=== PATIENT | male | born 1955 | race Caucasian/White ===

== ENCOUNTER 2018-09-21 10:50 | Emergency (ER) | payer BC ==
[2018-09-21 11:18] VITALS: RESP 18; TEMP 98
[2018-09-21] MEDS ORDERED: DEXAMETHASONE SOD PHOSPHATE 10 MG/ML 1 ML VIAL IV STA (12:19)
[2018-09-21] MEDS ORDERED: SODIUM CHLORIDE 0.9% 1,000 ML IV STA (12:19)
[2018-09-21] MEDS ORDERED: KETOROLAC 30 MG/ML 1 ML VIAL IVP STA (12:21)
[2018-09-21] MEDS ORDERED: AMPICILLIN-SULBACTAM 3 GM in SODIUM CHLORIDE 0.9% 100 ML IVPB STA (12:23)
[2018-09-21] MEDS ORDERED: CLINDAMYCIN 600 MG in DEXTROSE 5% IN WATER 50 ML IVPB STA ×2 (12:23)
[2018-09-21 13:30] LABS: ALT 24 U/L (21-72); AST 27 U/L (17-59); Albumin 4.6 g/dL (3.5-5.0); Alkaline Phosphatase 78 U/L (38-126); Anion Gap 10 mmol/L; Blood Urea Nitrogen 14 mg/dL (9-20); Calcium 9.6 mg/dL (8.4-10.2); Carbon Dioxide 22 mmol/L (22-30); Chloride 105 mmol/L (98-107); Glucose 97 mg/dL (74-99); Magnesium 1.9 mg/dL (1.6-2.3); Phosphorus 3.1 mg/dL (2.5-4.5); Potassium 5.2 mmol/L (3.5-5.1); Sodium 137 mmol/L (137-145)
[2018-09-21 13:35] LABS: Partial Thromboplastin Time 24.5 sec (22.0-30.0)
[2018-09-21 13:36] LABS: Basophils % (A) 0 %; Eosinophils # (A) 0.2 k/uL (0-0.7); Eosinophils % (A) 1 %; HCT 51.1 % (39.0-53.0); HGB 17.1 gm/dL (13.0-17.5); Lymphocytes # (A) 0.9 k/uL (1.0-4.8); Lymphocytes % (A) 6 %; MCH 31.1 pg (25.0-35.0); MCHC 33.4 g/dL (31.0-37.0); Mean Platelet Volume 6.7; Monocytes # (A) 0.7 k/uL (0-1.0); Monocytes % (A) 5 %; Neutrophils # (A) 13.9 k/uL (1.3-7.7); Neutrophils % (A) 88 %; Platelet Count 230 k/uL (150-450); RDW 14.5 % (11.5-15.5); WBC 15.8 k/uL (3.8-10.6)
--- NOTE | 2018-09-21 14:00 | CT ---
EXAMINATION TYPE: CT soft tissue neck wo con DATE OF EXAM: 09/21/2018 COMPARISON: None HISTORY: left side abscess / facial swelling CT DLP: 221.[address] of the neck was performed from the skull base through the lung apices . The lack of con trast limits evaluation. There is left facial swelling adjacent to the left hemimandible. Lack of contrast limits evaluation o mookie there appears to be an abscess or phlegmon on image 44 of 92 measuring approximately 2.7 x 1.7 cm . AIRWAY: The supraglottic, glottic, and subglottic portions of the airway appear patent and free of mass. Ulcerations noted of the tonsillar pillars. SALIVARY GLANDS: The submandibular and parotid glands are free of mass or inflammatory process. THYROID GLAND: No nodules or masses seen. LYMPH NODES: No adenopathy seen greater than 1cm. LUNG APICES: No nodule or mass is seen. OTHER: Vascular structures are patent. No significant degenerative change of the cervical spine. N o abscess seen. IMPRESSION: There is left facial swelling adjacent to the left hemimandible. Lack of contrast limits evaluation o mookie there appears to be an abscess or phlegmon on image 44 of 92 measuring approximately 2.7 x 1.7 cm .
--- NOTE | 2018-09-21 14:39 | ED ---
ENT HPI - General Chief complaint: Dental/Oral Stated complaint: Dental pain/facial swelling Time Seen by Provider: 09/21/18 11:45 Source: patient, RN notes reviewed, old records reviewed Mode of arrival: ambulatory Limitations: no limitations - History of Present Illness Initial comments: This is a 63-year-old male the ER for evaluation. Patient notes significant history of dental caries and dental infection. Patient has no fevers, presents with increased swelling to left jaw symptoms been going on for about a week Progressively worsened, patient states she is able to eat and drink without difficulty MD complaint: tooth pain, other (Swelling to left mandible) -: days(s) (5) Location: tooth # (Rear molar left) Severity: moderate (Swelling) Quality: aching Consistency: constant Improves with: none Worsens with: none Context- Dental: history of dental caries, poor dental care Associated Symptoms: fever (No fever), sore throat (No sore throat or difficulty eating or drinking) - Related Data Home Medications Medication Instructions Recorded Confirmed Lisinopril [Zestril] 20 mg PO BID 04/28/14 09/21/18 Ibuprofen [Advil] 400 mg PO Q12H PRN 09/21/18 09/21/18 Allergies Allergy/AdvReac Type Severity Reaction Status Date / Time No Known Allergies Allergy Verified 09/21/18 11:43 Review of Systems ROS Statement: Those systems with pertinent positive or pertinent negative responses have been documented in the HPI. ROS Other: All systems not noted in ROS Statement are negative. Past Medical History Past Medical History: Hyperlipidemia, Hypertension History of Any Multi-Drug Resistant Organisms: None Reported Past Surgical History: Hernia Repair, Joint Replacement Additional Past Surgical History / Comment(s): hernia x3, lt [facility], colonoscopy Past Anesthesia/Blood Transfusion Reactions: No Reported Reaction Past Psychological History: No Psychological Hx Reported Smoking Status: Current every day smoker Past Alcohol Use History: None Reported Past Drug Use History: None Reported General Exam Limitations: no limitations General appearance: alert, in no apparent distress Head exam: Present: atraumatic, normocephalic, normal inspection Eye exam: Present: normal appearance, PERRL, EOMI. Absent: scleral icterus, conjunctival injection, periorbital swelling ENT exam: Present: normal exam, mucous membranes moist, other (Significant left mandibular swelling no significant erythema, dental caries throughout) Neck exam: Present: normal inspection. Absent: tenderness, meningismus, lymphadenopathy Respiratory exam: Present: normal lung sounds bilaterally. Absent: respiratory distress, wheezes, rales, rhonchi, stridor Cardiovascular Exam: Present: normal rhythm, tachycardia, normal heart sounds. Absent: systolic murmur, diastolic murmur, rubs, gallop, clicks GI/Abdominal exam: Present: soft, normal bowel sounds. Absent: distended, tenderness, guarding, rebound, rigid Extremities exam: Present: normal inspection, full ROM, normal capillary refill. Absent: tenderness, pedal edema, joint swelling, calf tenderness Back exam: Present: normal inspection Neurological exam: Present: alert, oriented X3, CN II-XII intact Psychiatric exam: Present: normal affect, normal mood Skin exam: Present: warm, dry, intact, normal color. Absent: rash Course Vital Signs 09/21/18 09/21/18 11:16 13:30 Temperature 98 F Pulse Rate 101 H Respiratory 18 Rate Blood Pressure 153/95 147/90 O2 Sat by Pulse 97 97 Oximetry - Reevaluation(s) Reevaluation #1: 09/21/18 14:36 Medical records reviewed Reevaluation #2: 09/21/18 14:36 Patient is symptoms improved Reevaluation #3: 09/21/18 14:[address] mckeon for OMFS will see patient in a.m. Medical Decision Making - Medical Decision Making 63 male the ER for evaluation of mouth pain tooth pain. Patient significant left-sided dental abscess swelling and edema. Patient will be placed on antibiotics, Both IV antibiotics and steroids here in the hospital, patient will discharge is to follow-up with oral surgery tomorrow - Lab Data Result diagrams: 09/21/18 12:56 09/21/18 12:56 Lab Results 09/21/18 09/21/18 09/21/18 Range/Units 12:56 12:56 12:56 WBC 15.8 H (3.8-10.6) k/uL RBC 5.50 (4.30-5.90) m/uL Hgb 17.1 (13.0-17.5) gm/dL Hct 51.1 (39.0-53.0) % MCV 93.0 (80.0-100.0) fL MCH 31.1 (25.0-35.0) pg MCHC 33.4 (31.0-37.0) g/dL RDW 14.5 (11.5-15.5) % Plt Count 230 (150-450) k/uL Neutrophils % 88 % Lymphocytes % 6 % Monocytes % 5 % Eosinophils % 1 % Basophils % 0 % Neutrophils # 13.9 H (1.3-7.7) k/uL Lymphocytes # 0.9 L (1.0-4.8) k/uL Monocytes # 0.7 (0-1.0) k/uL Eosinophils # 0.2 (0-0.7) k/uL Basophils # 0.0 (0-0.2) k/uL PT (9.0-12.0) sec INR (<1.2) APTT (22.0-30.0) sec Sodium 137 (137-145) mmol/L Potassium 5.2 H (3.5-5.1) mmol/L Chloride 105 (98-107) mmol/L Carbon Dioxide 22 (22-30) mmol/L Anion Gap 10 mmol/L BUN 14 (9-20) mg/dL Creatinine 0.84 (0.66-1.25) mg/dL Est GFR (CKD-EPI)AfAm >90 (>60 ml/min/1.73 sqM) Est GFR (CKD-EPI)NonAf >90 (>60 ml/min/1.73 sqM) Glucose 97 (74-99) mg/dL Plasma Lactic Acid Marc 1.1 (0.7-2.0) mmol/L Calcium 9.6 (8.4-10.2) mg/dL Phosphorus 3.1 (2.5-4.5) mg/dL Magnesium 1.9 (1.6-2.3) mg/dL Total Bilirubin 1.0 (0.2-1.3) mg/dL AST 27 (17-59) U/L ALT 24 (21-72) U/L Alkaline Phosphatase 78 (38-126) U/L Total Protein 8.0 (6.3-8.2) g/dL Albumin 4.6 (3.5-5.0) g/dL 09/21/18 Range/Units 12:56 WBC (3.8-10.6) k/uL RBC (4.30-5.90) m/uL Hgb (13.0-17.5) gm/dL Hct (39.0-53.0) % MCV (80.0-100.0) fL MCH (25.0-35.0) pg MCHC (31.0-37.0) g/dL RDW (11.5-15.5) % Plt Count (150-450) k/uL Neutrophils % % Lymphocytes % % Monocytes % % Eosinophils % % Basophils % % Neutrophils # (1.3-7.7) k/uL Lymphocytes # (1.0-4.8) k/uL Monocytes # (0-1.0) k/uL Eosinophils # (0-0.7) k/uL Basophils # (0-0.2) k/uL PT 11.0 (9.0-12.0) sec INR 1.0 (<1.2) APTT 24.5 (22.0-30.0) sec Sodium (137-145) mmol/L Potassium (3.5-5.1) mmol/L Chloride (98-107) mmol/L Carbon Dioxide (22-30) mmol/L Anion Gap mmol/L BUN (9-20) mg/dL Creatinine (0.66-1.25) mg/dL Est GFR (CKD-EPI)AfAm (>60 ml/min/1.73 sqM) Est GFR (CKD-EPI)NonAf (>60 ml/min/1.73 sqM) Glucose (74-99) mg/dL Plasma Lactic Acid Marc (0.7-2.0) mmol/L Calcium (8.4-10.2) mg/dL Phosphorus (2.5-4.5) mg/dL Magnesium (1.6-2.3) mg/dL Total Bilirubin (0.2-1.3) mg/dL AST (17-59) U/L ALT (21-72) U/L Alkaline Phosphatase (38-126) U/L Total Protein (6.3-8.2) g/dL Albumin (3.5-5.0) g/dL - Radiology Data Radiology results: report reviewed (CT soft tissue neck does show positive abscess left mandibular), image reviewed Disposition Clinical Impression: Dental abscess, Toothache Disposition: HOME SELF-CARE Condition: Good Instructions: Dental Abscess (ED), Dental Caries (ED) Is patient prescribed a controlled substance at d/c from ED?: No Referrals: Rodolfo Delgado DDS [STAFF PHYSICIAN] - 1-2 days
[2018-09-21 18:07] VITALS: BP 122/77; PULSE 85
== END 2018-09-21 15:37 | disposition home or self-care (01) ==
LOC: EC 10:50
DX: K04.7 Periapical abscess without sinus (principal); I10 Essential (primary) hypertension; F17.200 Nicotine dependence, unspecified, uncomplicated; Z79.899 Other long term (current) drug therapy
CPT/HCPCS: 36415; 80053; 83605; 83735; 84100; 85025; 85610; 85730; 87040; 70490; 99284; 96365; 96368; 96375 ×2; J1100; J1885; J0295

== ENCOUNTER → 2020-09-07 | Outpatient (CLI) | payer BC ==
--- NOTE | 2020-09-07 10:36 | ECHOF ---
Referral Reason:I10 hypertension,R00.2 palpitations, R42 dizziness MEASUREMENTS -------- HEIGHT: 182.9 cm WEIGHT: 70.3 kg BP: IVSd: 0.9 cm (0.6 - 1.1) LVIDd: 3.6 cm (3.9 - 5.3) LVPWd: 1.1 cm (0.6 - 1.1) IVSs: 1.4 cm LVIDs: 2.2 cm LVPWs: 1.4 cm LAESV Index (A-L): 15.57 ml/m Ao Diam: 3.3 cm (2.0 - 3.7) AV Cusp: 1.5 cm (1.5 - 2.6) MV E Dav: 0.76 m/s MV DecT: 179 ms MV A Dav: 0.64 m/s MV E/A Ratio: 1.19 RAP: 5.00 mmHg RVSP: 29.09 mmHg FINDINGS -------- Sinus rhythm. This was a technically difficult study with suboptimal apical views. This was a technically difficult study with suboptimal parasternal views. The left ventricular size is normal. There is borderline concentric left ventricular hypertrophy. Overall left ventricular systolic function is normal with, an EF between 55 - 60 %. The right ventricle is normal in size. Normal LA size by volume 22+/-6 ml/m2. The right atrial size is normal. Interatrial and interventricular septum intact. The aortic valve is trileaflet and appears structurally normal. There is mild aortic valve sclerosi s. There is no evidence of aortic regurgitation. There is no evidence of aortic stenosis. No mitral regurgitation. Mild tricuspid regurgitation present. There is no evidence of pulmonary hypertension. The right v entricular systolic pressure, as measured by Doppler, is 29.09mmHg. There is no pulmonic regurgitation present. The aortic root size is normal. Normal inferior vena cava with normal inspiratory collapse consistent with estimated right atrial pre ssure of 5 mmHg. There is no pericardial effusion. CONCLUSIONS -------- 1. The left ventricular size is normal. 2. There is borderline concentric left ventricular hypertrophy. 3. Overall left ventricular systolic function is normal with, an EF between 55 - 60 %. 4. There is mild aortic valve sclerosis. 5. Mild tricuspid regurgitation present. VARNISH DIPPER: Esperanza Mendez [facility]
--- NOTE | 2020-09-07 10:43 | P.STRESS ---
- Stress Test Note Stress Test Results/Findings: Exam Performed: stress echo exercise with con Exam Date: 09/07/20 Reason for Exam: HTN, PALPITATIONS, DIZZINESS Height: 6 ft Weight: 70.4 kg Protocol: STRESS ECHO WITH LUMASON Stage: 2 Duration of Exercise: 6:00 Resting Heart Rate: 86 Resting Blood Pressure: 121/69 Maximum Achieved Heart Rate: 141 Maximum Achieved Blood Pressure: 146/68 85% PMHR: 133 100% PMHR: 157 METS: 7.1 Technologist Comment: Stress Test Results/Findings: Patient underwent exercise stress echo with a Hans protocol treadmill stress test. Patient exercised into Stage 2 for a total of 6 minutes reaching a total of 7.1 METS. Patient's maximum heart rate was 141 which represented 90 % age- predicted maximum heart rate. Stress EKG portion: At baseline patient's EKG showed normal sinus rhythm, incomplete right bundle branch block, no significant ST-T wave abnormalities, occasional PVCs. At peak exercise, EKG showed no significant change from baseline. Stress echo portion: 2-D echocardiogram was performed in the parasternal long, personal short, apical 2 and apical four-chamber views at rest, peak exercise and in recovery. At baseline, echocardiogram showed left ventricular ejection fraction 55 % without wall motion abnormalities. With peak exercise, echocardiogram shows improvement in left ventricular ejection fraction, increase contractility, decrease in left ventricular dimension without wall motion abnormalities consistent with a normal response to exercise. Conclusions: 1. Normal EKG and echo response to exercise without evidence of inducible ischemia. 2. Fair exercise capacity.
--- NOTE | 2020-09-07 11:11 | US ---
EXAMINATION TYPE: US carotid duplex BILAT DATE OF EXAM: 09/07/2020 COMPARISON: NONE CLINICAL HISTORY: I10 hypertension,R00.2 palpitations, R42 dizziness. EXAM MEASUREMENTS: RIGHT: Peak Systolic Velocity (PSV) cm/sec ----- Right CCA: 88.5 ----- Right ICA: 84.1 ----- Right ECA: 87.1 ICA/CCA ratio: 0.9 RIGHT: End Diastole cm/sec ----- Right CCA: 28.9 ----- Right ICA: 41.7 ----- Right ECA: 17.5 LEFT: Peak Systolic Velocity (PSV) cm/sec ----- Left CCA: 66.7 ----- Left ICA: 177.2 ----- Left ECA: 76.8 ICA/CCA ratio: 2.7 LEFT: End Diastole cm/sec ----- Left CCA: 25.9 ----- Left ICA: 78.7 ----- Left ECA: 16.4 VERTEBRALS (direction of flow): Right Vertebral: Antegrade Left Vertebral: Antegrade Rhythm: Normal Right side shows moderate atherosclerotic changes with no elevated velocity elevations, left side als o shows moderate atherosclerotic changes with slight velocity elevations. IMPRESSION: 1. Bilateral atherosclerotic changes with findings suggestive of a 50-69% stenosis involving the prox imal left ICA. Criteria for Assigning % of Stenosis / Diameter reduction (Estimation based on the indirect measurements of the internal carotid artery velocities (ICA PSV). 1. Normal (no stenosis)=ICA PSV < 125 cm/s: ratio < 2.0: ICA EDV<40 cm/s. 2. Less than 50% stenosis=ICA PSV < 125 cm/s: ratio < 2.0: ICA EDV<40 cm/s. 3. 50 to 69% stenosis=ICA PSV of 125 to 230 cm/s: ration 2.0 ? 4.0: ICA EDV 40-100 cm/s. 4. Greater than 70% stenosis to near occlusion= ICA PSV > 230 cm/s: ratio > 4.0: ICA EDV > 100 cm/s. 5. Near occlusion= ICA PSV velocities may be low or undetectable: variable ratio and ICA EDV. 6. Total occlusion=unable to detect flow.
--- NOTE | 2020-09-09 15:27 | P.HOLTER ---
24 Hour Holter monitor note: Patient wore a Holter monitor for 24 hrs from September 07 until 09/08/2020. Findings: Patient's baseline heart rate was normal sinus rhythm. There were no signficant atrial fibrillation or atrial flutter episodes. There were no significant pauses greater than 2 seconds. Patient's minimum heart rate was 49 bpm. Patient's maximum heart rate was 130 bpm. Patient's average heart rate was 72 bpm. Patient had 1 nonsustained 7 beat run of ventricular escape rhythm at 80 bpm. Additionally there were rare PVCs, ventricular couplets and ventricular tri geminy. No significant SVT. Conclusions: Normal sinus rhythm and one episode of 7 beat run of ventricular escape rhythm at 80 bpm, occasional PVCs and couplets. No significant pauses or atrial fibr illation noted.
--- NOTE | 2020-09-12 10:06 | HM ---
24 Hour Holter monitor note: Patient wore a Holter monitor for 24 hrs from September 07 until 09/08/2020. Findings: Patient's baseline heart rate was normal sinus rhythm. There were no signficant atrial fibrillation or atrial flutter episodes. There were no significant pauses greater than 2 seconds. Patient's minimum heart rate was 49 bpm. Patient's maximum heart rate was 130 bpm. Patient's average heart rate was 72 bpm. Patient had 1 nonsustained 7 beat run of ventricular escape rhythm at 80 bpm. Additionally there were rare PVCs, ventricular couplets and ventricular trigeminy. No significant SVT. Conclusions: Normal sinus rhythm and one episode of 7 beat run of ventricular escape rhythm at 80 bpm, occasional PVCs and couplets. No significant pauses or atrial fibrillation noted. MTDD
== END | disposition home or self-care (01) ==
LOC: RADECHMAIN 09:14
PROVIDERS: ATTEND Family Medicine
DX: I07.1 Rheumatic tricuspid insufficiency (principal); I35.8 Other nonrheumatic aortic valve disorders; I49.3 Ventricular premature depolarization; I65.23 Occlusion and stenosis of bilateral carotid arteries; R07.9 Chest pain, unspecified
CPT/HCPCS: 93225; 93226; 93306; 93351; 93880; Q9950